=== PATIENT | female | born 1985 | race African-American/Black ===

== ENCOUNTER 2017-11-10 10:05 | Emergency (ER) | payer OTHER ==
[~2017-11-10] VITALS: Ht 162.6 cm; Wt 72.6 kg
--- NOTE | ~2017-11-10 | EKG ---
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
[~2017-11-10 10:05] MED LIST: BACTRIM DS TAB1 EACH PO; COLACE100 MG PO; IBUPROFEN 400400 M2 PO; K-DUR 20 MEQ T20 MEQ PO; KEFLEX500 MG PO; MACROBID 100 M100 M1 PO; NOHOMEMEDICATIONS; PEPCID20 MG PO; PERCOCET PO; PYRIDIUM200 MG PO; REGLAN 5 MG TAB5 M1 PO; ROLAIDS CHEWAB1 EAC1 PO; ULTRAM 50MG TAB50 MG PO; ZPAK PO
[2017-11-10 10:54] LABS: ABSOLUTE NEUTROPHILS 2.8 thou/uL (1.4-8.2); BASOPHILS 0.5 % (0.0-2.0); EOSINOPHILS 0.5 % (0.0-3.0); HEMATOCRIT 39.8 % (37.0-47.0); HEMOGLOBIN 13.3 gm/dL (12.0-15.0); LYMPHOCYTES 36.7 % (24.0-44.0); MCH 28.5 pg (26.0-34.0); MCHC 33.4 g/dL (28.0-37.0); MCV 85.1 fL (80.0-100.0); MONOCYTES 8.3 % (1.0-8.0); PLATELET COUNT 276 thou/uL (150-400); RBC 4.67 mil/uL (4.20-5.00); RDW 14.6 % (10.5-14.5); WBC 5.1 thou/uL (4.0-11.0)
[2017-11-10 11:07] LABS: ANION GAP 9 mmol/L (7-16); BUN 11 mg/dL (7-18); CALCIUM 9.3 mg/dL (8.5-10.1); CHLORIDE 106 mmol/L (98-107); CO2 23 mmol/L (21-32); CREATININE 0.9 mg/dL (0.6-1.0); GLUCOSE 98 mg/dL (74-106); POTASSIUM 3.8 mmol/L (3.5-5.1); SODIUM 138 mmol/L (136-145)
[2017-11-10 11:16] LABS: TROPONIN-I < 0.04 ng/mL (<0.06)
[2017-11-10 12:22] VITALS: BP 111/74
== END 2017-11-10 12:23 | disposition home or self-care (01) ==
LOC: ER 10:05
PROVIDERS: Physician Assistant
DX: R20.2 Paresthesia of skin (principal)

== ENCOUNTER 2018-07-08 21:51 | Emergency (ER) | payer OTHER ==
[~2018-07-08] VITALS: Ht 162.6 cm; Wt 68.0 kg
--- NOTE | ~2018-07-08 | EKG ---
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
[2018-07-08 22:30] LABS: URINE BILIRUBIN NEGATIVE (Negative); URINE BLOOD 2+ (Negative); URINE CLARITY CLEAR; URINE COLOR YELLOW; URINE GLUCOSE-RANDOM* NEGATIVE (Negative); URINE KETONES TRACE (Negative); URINE LEUKOCYTES-REFLEX NEGATIVE (Negative); URINE NITRITE-REFLEX NEGATIVE (Negative); URINE PROTEIN (DIPSTICK) NEGATIVE (Negative); URINE SPECIFIC GRAVITY >= 1.030 (1.005-1.035); URINE UROBILINOGEN 0.2 E.U./dl (0.2-1.0)
[2018-07-08 22:45] LABS: SQUAMOUS >10 Many /LPF (0-3)
[2018-07-08 22:46] LABS: BACTERIA-REFLEX 1-9 Few /HPF (None Seen); CASTS None Seen /LPF (None Seen); CRYSTALS None Seen /LPF (None Seen); MUCUS >6 Heavy strn/LPF (None Seen); URINE RBC 3-10 Few /HPF (0-2); URINE WBC-REFLEX 6-15 Few /HPF (0-5)
[2018-07-08 23:12] LABS: ABSOLUTE NEUTROPHILS 2.1 thou/uL (1.4-8.2); BASOPHILS 0.6 % (0.0-2.0); EOSINOPHILS 2.3 % (0.0-3.0); HEMATOCRIT 36.5 % (37.0-47.0); HEMOGLOBIN 12.5 gm/dL (12.0-15.0); LYMPHOCYTES 47.6 % (24.0-44.0); MCH 28.9 pg (26.0-34.0); MCHC 34.1 g/dL (28.0-37.0); MCV 84.8 fL (80.0-100.0); PLATELET COUNT 251 thou/uL (150-400); POLYS 37.5 % (36.0-66.0); RDW 13.2 % (10.5-14.5); WBC 5.6 thou/uL (4.0-11.0)
[2018-07-08 23:19] LABS: ANION GAP 11 mmol/L (7-16); BUN 13 mg/dL (7-18); CALCIUM 8.3 mg/dL (8.5-10.1); CHLORIDE 102 mmol/L (98-107); CO2 24 mmol/L (21-32); CREATININE 0.9 mg/dL (0.6-1.0); GLUCOSE 95 mg/dL (74-106); POTASSIUM 3.2 mmol/L (3.5-5.1); SODIUM 137 mmol/L (136-145)
[2018-07-08 23:22] LABS: ALBUMIN 3.8 g/dL (3.4-5.0); LIPASE 117 U/L (73-393)
[2018-07-08 23:47] LABS: SGOT 15 U/L (15-37); SGPT 14 U/L (30-65); TOTAL BILIRUBIN 0.3 mg/dL (<0.1-1.0); TOTAL PROTEIN 7.6 g/dL (6.4-8.2)
[2018-07-09 00:01] LABS: TROPONIN-I <0.06 ng/mL (<0.06)
[2018-07-09] MEDS ORDERED: PRILOSEC 20 MG20 MG PO (02:26)
[2018-07-09] MEDS ORDERED: KEFLEX500 M1 PO (02:26)
[2018-07-09 02:41] VITALS: BP 123/78
== END 2018-07-09 02:46 | disposition home or self-care (01) ==
LOC: ER 21:51
PROVIDERS: Emergency Medicine
DX: N39.0 Urinary tract infection, site not specified (principal); E87.6 Hypokalemia; K59.00 Constipation, unspecified; R00.0 Tachycardia, unspecified; R79.1 Abnormal coagulation profile

== ENCOUNTER 2018-11-20 18:03 | Emergency (ER) | payer OTHER ==
[~2018-11-20] VITALS: Ht 162.6 cm; Wt 68.0 kg
[~2018-11-20 18:03] MED LIST changes: +KEFLEX500 M1 PO; +PRILOSEC 20 MG20 MG PO
[2018-11-20 18:39] LABS: ABSOLUTE NEUTROPHILS 2.6 thou/uL (1.4-8.2); BASOPHILS 0.6 % (0.0-2.0); EOSINOPHILS 1.3 % (0.0-3.0); HEMATOCRIT 39.8 % (37.0-47.0); HEMOGLOBIN 13.2 gm/dL (12.0-15.0); LYMPHOCYTES 38.7 % (24.0-44.0); MCHC 33.2 g/dL (28.0-37.0); MCV 87.3 fL (80.0-100.0); PLATELET COUNT 281 thou/uL (150-400); POLYS 47.4 % (36.0-66.0); RBC 4.56 mil/uL (4.20-5.00); RDW 13.7 % (10.5-14.5); WBC 5.4 thou/uL (4.0-11.0)
[2018-11-20 18:47] LABS: ANION GAP 10 mmol/L (7-16); BUN 17 mg/dL (7-18); CALCIUM 9.1 mg/dL (8.5-10.1); CHLORIDE 106 mmol/L (98-107); CO2 25 mmol/L (21-32); CREATININE 0.9 mg/dL (0.6-1.0); GLUCOSE 115 mg/dL (74-106); POTASSIUM 3.8 mmol/L (3.5-5.1); SODIUM 141 mmol/L (136-145)
[2018-11-20 18:49] LABS: TROPONIN-I <0.06 ng/mL (<0.06)
[2018-11-20] MEDS ORDERED: MOBIC15 MG PO (21:09)
[2018-11-20 21:22] VITALS: BP 106/60
--- NOTE | 2018-11-21 08:26 | EKG ---
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1985 Requested By: Becki Carter Order Number: [id number] MD: Faisal Valles Measurements Intervals [place] Rate: 93 P: 46 [place]: 153 QRS: 31 QRSD: 108 T: 56 QT: 353 QTc: 440 Interpretive Statements Sinus rhythm RSR' in V1 or V2, probably normal variant Baseline wander in lead(s) V6 Compared to ECG 07/08/2018 22:52:31 No significant changes Electronically Signed On 11-21-2018 8:25:54 CDT by Faisal Valles [email or web address] ��������������������������������������������� <ELECTRONICALLY SIGNED> ���������������������������������������� By: Faisal Valles MD ��������������������������������������������� 11/21/18 08 16 16 Faisal Valles MD /SARWAT
== END 2018-11-20 21:22 | disposition home or self-care (01) ==
LOC: ER 18:03
PROVIDERS: Emergency Medicine
DX: R07.89 Other chest pain (principal); Z98.890 Other specified postprocedural states

== ENCOUNTER 2020-05-22 11:05 | Emergency (ER) | payer OTHER ==
[~2020-05-22] VITALS: Ht 165.1 cm; Wt 77.1 kg
[~2020-05-22 11:05] MED LIST changes: +MOBIC15 MG PO
[2020-05-22 11:24] LABS: URINE BILIRUBIN NEGATIVE (Negative); URINE BLOOD 2+ (Negative); URINE CLARITY CLEAR; URINE COLOR YELLOW; URINE GLUCOSE-RANDOM* NEGATIVE (Negative); URINE KETONES NEGATIVE (Negative); URINE LEUKOCYTES-REFLEX NEGATIVE (Negative); URINE NITRITE-REFLEX NEGATIVE (Negative); URINE PROTEIN (DIPSTICK) NEGATIVE (Negative)
[2020-05-22 11:43] LABS: BACTERIA-REFLEX 1-9 Few /HPF (None Seen); CASTS None Seen /LPF (None Seen); CRYSTALS None Seen /LPF (None Seen); SQUAMOUS >10 Many /LPF (0-3); URINE RBC 0-2 Rare /HPF (0-2); URINE WBC-REFLEX 0-5 Rare /HPF (0-5)
[2020-05-22 12:03] LABS: HEMATOCRIT 36.2 % (37.0-47.0); HEMOGLOBIN 12.1 gm/dL (12.0-15.0); MCH 28.8 pg (26.0-34.0); MCHC 33.4 g/dL (28.0-37.0); MCV 86.1 fL (80.0-100.0); PLATELET COUNT 255 thou/uL (150-400); RDW 13.2 % (10.5-14.5); WBC 4.5 thou/uL (4.0-11.0)
[2020-05-22 12:13] LABS: CALCIUM 8.5 mg/dL (8.5-10.1); CREATININE 0.6 mg/dL (0.6-1.0); POTASSIUM 3.5 mmol/L (3.5-5.1)
[2020-05-22 12:19] LABS: ALBUMIN 3.2 g/dL (3.4-5.0); TOTAL BILIRUBIN 0.2 mg/dL (0.2-1.0); TOTAL PROTEIN 7.3 g/dL (6.4-8.2)
[2020-05-22] MEDS ORDERED: ONDANSETRON HCL4 M2 PO (13:27)
[2020-05-22 13:31] LABS: ABSOLUTE NEUTROPHILS 2.5 thou/uL (1.4-8.2)
[2020-05-22 13:35] VITALS: BP 130/70
== END 2020-05-22 13:35 | disposition home or self-care (01) ==
LOC: ER 11:05
PROVIDERS: Physician Assistant
DX: O21.8 Other vomiting complicating pregnancy (principal); O20.8 Other hemorrhage in early pregnancy; Z79.899 Other long term (current) drug therapy; Z3A.10 10 weeks gestation of pregnancy